=== PATIENT | female | born 1990 | race Caucasian/White ===

== ENCOUNTER 2024-09-15 20:41 | Emergency (ER) | payer OTHER, SELFPAY ==
[2024-09-15 20:56] VITALS: BP 135/94; PULSE 90; RESP 20; TEMP 36.8; O2SAT 100; BMI 22.5
[2024-09-15] MEDS: Diphth,Pertus(ACell),Tet Adult 0.5 ML SYRINGE IM (22:03)
--- NOTE | 2024-09-15 23:10 | ED_ITS ---
HPI - General Adult General Chief complaint: Wound/Laceration Stated complaint: rt cut finger Time Seen by Provider: 09/15/24 21:33 Source: patient Limitations: no limitations History of Present Illness ED Provider: Patty Albright PA-C HPI narrative: 33-year-old female presents with right pinky avulsion. Patient states she was using a mandoline cutting vegetables, when she subsequently shaved off the tip of her pinky finger. Unclear if tetanus is up-to-date. The patient is not on a blood thinner. Related Data Allergies Allergy/AdvReac Type Severity Reaction Status Date / Time No Known Allergies Allergy Verified 09/15/24 20:59 Review of Systems Review of Systems: Yes all other systems are reviewed and are negative Constitutional: Constitutional: Denies fatigue and Denies fever(s) Musculoskeletal: Musculoskeletal: Denies arthralgias, Denies joint swelling and Denies tingling Neurologic: Denies tingling Endocrine: Endocrine: Denies fatigue PMFSH Past Medical History Attestation statement: The following information was validated with the patient. Social History Social History Advance Directives: No Advance Directives Information Provided: No Physical Exam ED Exam Exam: Alert well-appearing Vital Signs: Vital Signs - 24 hr 09/15/24 20:56 Temperature 98.2 F Pulse Rate 90 Respiratory Rate 20 Blood Pressure 135/94 H Pulse Oximetry 100 Oxygen Delivery Method Room Air BMI result Body Mass Index 22.5 Const Orientation/consciousness: patient oriented x3 Resp Effort & Inspection: normal respiratory effort Cardio Other: Normal peripheral perfusion Skin Other: Warm dry no rash Neuro General: patient oriented x3, gait normal, no focal motor deficits and CN's II- XI intact bilaterally Extrem Other: Avulsion tip of right 5th digit minimally bleeding, is superficial, does not involve the nail Psych Other: Cooperative Medications Administered Discontinued Medications Generic Name Dose Route Start Last Admin Trade Name Freq PRN Reason Stop Dose Admin Diphtheria/Tetanus/Acell Pertussis 0.5 ml 09/15/24 21:34 09/15/24 22:03 Diphth,Pertus(Acell),Tet Adult 0.5 Ml Syringe IM 09/15/24 21:35 0.5 ml .ONCE ONE Administration Medical Decision Making Medical Decision Making MDM Narrative: 33-year-old female presents with right pinky avulsion. Patient states she was using a mandoline cutting vegetables, when she subsequently shaved off the tip of her pinky finger. Unclear if tetanus is up-to-date. The patient is not on a blood thinner. No chronic issues History: Per patient I have considered the following differential diagnoses: Fracture, open fracture, laceration, avulsion, excoriation, abrasion Plan: The patient avulsed the tip of the right pinky, the wound has been cleaned, hemostasis has been achieved with a combination of lidocaine with epi and TXA, updating tetanus Discharge Plan Discharge Clinical Impression: Avulsion of skin Patient Disposition: Home, Self-Care Additional Instructions: Keep the wound clean and dry. Re-dress the wound tomorrow evening. It will take time for the wound to heal. Follow up with primary care as needed. Print Language: [place]une[place]
[2024-09-15] MEDS: Tranexamic Acid 1,000 MG/10 ML VIAL 500 MG INTRANASAL (23:18)
[2024-09-15 23:29] VITALS: BP 128/65; PULSE 90; RESP 20; TEMP 36.8; O2SAT 100
== END 2024-09-15 23:29 | disposition home or self-care (01) ==
PROVIDERS: Emergency Provider Emergency Medicine
DX: S61.206A Unspecified open wound of right little finger without damage to nail, initial encounter (principal); W26.9XXA Contact with unspecified sharp object(s), initial encounter; Y93.9 Activity, unspecified; Y92.89 Other specified places as the place of occurrence of the external cause; Y99.8 Other external cause status; Z23 Encounter for immunization
CPT/HCPCS: 90471; 90715; 99282; 99284